=== PATIENT | female | born 1945 ===

== ENCOUNTER 2017-12-30 06:01 | Day surgery (SDC) | payer MEDICARE ==
[2017-11-25 13:46] VITALS: BMI 27.4
[2017-12-30] MEDS ORDERED: Lidocaine 2% Inj (20ml) ONE (06:45)
[2017-12-30] MEDS ORDERED: Phenylephrine 10 mg/ml Inj ONE (06:45)
[2017-12-30] MEDS ORDERED: Iohexol 350mgl/ml 50 ML ONE (06:45)
[2017-12-30] MEDS ORDERED: Iodixanol 320 MG/ML 200 ML BOTTLE IV ONE (06:45)
[2017-12-30] MEDS ORDERED: Iodixanol 320 MG/ML 100 ML BOTTLE IV ONE (06:45)
[2017-12-30] MEDS ORDERED: Nitroglycerin 50mg in D5W 0 MG/0 ML BOTTLE IV ONE (06:46)
[2017-12-30 06:47] VITALS: RESP 18
[2017-12-30 06:50] LABS: BLOOD UREA NITROGEN 9 mg/dL (7-21); CALCIUM 8.7 mg/dL (8.4-10.5); GFR AFRICAN-AMERICAN > 60; GFR NON-AFRICAN AMERICAN > 60
[2017-12-30 06:51] LABS: BASO # 0.05 K/mm3 (0.0-2.0); EOS # 0.3 (0.0-0.7); EOS % 5.3 % (1.5-5.0); GRAN # 2.85 (1.4-6.5); GRAN % 55.9 % (50.0-68.0); HEMOGLOBIN 11.9 g/dL (12.0-16.0); LYMPH # 1.5 (1.2-3.4); LYMPH % 29.6 % (22.0-35.0); MEAN CELL VOLUME 82.4 fl (80.0-105.0); MEAN CORPUSCULAR HEMOGLOBIN 26.9 pg (25.0-35.0); MEAN CORPUSCULAR HGB CONC 32.7 g/dl (31.0-37.0); MEAN PLATELET VOLUME 8.3 fl (7.0-11.0); MONO # 0.4 (0.1-0.6); MONO % 8.2 % (1.0-6.0); RBC 4.42 10^6/uL (3.5-6.1); RED CELL DISTRIBUTION WIDTH 14.8 % (11.5-14.5); WHITE BLOOD COUNT 5.1 10^3/ul (4.5-11.0)
[2017-12-30 06:56] LABS: INR 0.94 (0.93-1.08); PARTIAL THROMBOPLASTIN TIME 29.4 Seconds (25.1-36.5); PROTHROMBIN TIME 10.8 SECONDS (9.4-12.5)
[2017-12-30] MEDS ORDERED: Midazolam 2 MG/2 ML VIAL ONE ×3 (07:24→07:59)
[2017-12-30] MEDS ORDERED: Sodium Chloride 0.9% 1,000 ML IV SCH (08:30)
[2017-12-30 08:49] VITALS: TEMP 97.5
--- NOTE | 2017-12-30 09:38 | CARDCATH ---
PROCEDURE DATE: 12/30/2017 HISTORY: The patient is 72-year-old woman who presents with chest pain. Her cardiac risk factors include hypertension, diabetes mellitus and hypercholesterolemia. A stress test showed apical ischemic areas. A cardiac catheterization was recommended. PROCEDURE: Left heart catheterization with coronary arteriography and left ventriculogram. The right femoral artery was cannulated with 6-K[place]akh sheath. There were no complications. I performed moderate sedation, which included the presence of an independent trained observer that assisted in monitoring the patient's level of consciousness and physiologic status. After administration of Versed and fentanyl, my intra service time was 15 minutes. The findings on catheterization revealed a right dominant circulation. The RCA revealed intimal irregularities throughout its course. In the distal portion of the RCA and at the takeoff of the PDA, there was a 50% stenoses noted. The left main artery was unremarkable. The LAD revealed calcification in its proximal portion as well as intimal irregularities without critical lesions. The diagonal vessels were free of significant disease. The circumflex artery and obtuse marginal branches revealed intimal irregularities without significant stenoses. Left ventriculogram was performed in the [place] projection. In [place] projection, wall motion is within normal limits. Estimated ejection fraction is 60%. Angio-Seal was used to close the femoral artery site. The patient tolerated the procedure well. In summary, the procedure revealed intimal irregularities throughout its course and calcification in the proximal LAD. There is a 50% stenosis in the distal RCA involving the proximal portion of the PDA. LV function is normal. Diabetes mellitus, hypertension and hypercholesterolemia. Given these findings, the patient needs to be vigilant in terms of her cardiac risk reduction program. I have discussed with the patient and family about the need for an exercise program. The patient is strictly sedentary at home. Nick Mcghee MD
[2017-12-30 13:21] VITALS: O2SAT 98
[2017-12-30 16:12] VITALS: BP 146/70; PULSE 94
--- NOTE | 2017-12-30 21:31 | CARD ---
APPROVED REPORT EKG Measurement Heart [id number] <Conclusion> Normal sinus rhythm Prolonged QT Abnormal ECG
== END 2017-12-30 16:05 | disposition home or self-care (01) ==
LOC: CATH 06:01
PROVIDERS: ATTEND Internal Medicine Cardiovascular Disease
DX: I25.10 Atherosclerotic heart disease of native coronary artery without angina pectoris (principal); E11.9 Type 2 diabetes mellitus without complications; I10 Essential (primary) hypertension
CPT/HCPCS: 36415; 80048; 85025; 85610; 85730; 86850; 86900; 93005; 93458; 99152; 99153; C1760; C1769; C2629; J0360; J1644; J2250; J3010; J7030 ×2; Q9966